=== PATIENT | female | born 1990 | race Caucasian/White ===

== ENCOUNTER 2022-02-20 10:06 | Emergency (ER) | payer OTHER ==
[~2022-02-20] VITALS: Ht 157.5 cm; Wt 48.1 kg
[2022-02-20] MEDS ORDERED: SPRINTEC 28 DA1 EACH (10:36)
== END 2022-02-20 14:31 | disposition home or self-care (01) ==
LOC: ER 10:06
DX: S93.402A Sprain of unspecified ligament of left ankle, initial encounter (principal); X58.XXXA Exposure to other specified factors, initial encounter; Y93.9 Activity, unspecified; Y92.9 Unspecified place or not applicable; Y99.9 Unspecified external cause status